=== PATIENT | female | born 1985 | race Hispanic/Latino ===

== ENCOUNTER 2018-05-01 07:12 | Emergency (ER) | payer MEDICAID ==
[2018-05-01 07:17] VITALS: TEMP 98.2; O2SAT 99
[2018-05-01] MEDS ORDERED: Sodium Chloride 0.9% 1,000 ML IV ONE (07:52)
--- NOTE | 2018-05-01 07:54 | C.PDOC ---
History Of Present Illness 33 y/o female with history of GERD presents to ED for evaluation of localized epigastric and RUQ abdominal pain since last night associated with nausea. Patient denies fever, chills, sore throat, neck pian, CP,SOB, dyspnea, cough, vomiting, diarrhea, melena, back pain, dysuria, hematuria,denies recent travel or known sick contact, or any other complaints at this time. Ambulate to Ed for evaluation, not in any apparent distress. Time Seen by Provider: 05/01/18 07:19 Chief Complaint (Nursing): Abdominal Pain History Per: Patient History/Exam Limitations: no limitations Onset/Duration Of Symptoms: Days Current Symptoms Are (Timing): Still Present Location Of Pain/Discomfort: RUQ, Epigastric Radiation Of Pain To:: None Quality Of Discomfort: "Pain" Past Medical History Reviewed: Historical Data, Nursing Documentation, Vital Signs Vital Signs: Last Vital Signs Temp 98.2 F 05/01/18 09:53 Pulse 87 05/01/18 09:53 Resp 14 05/01/18 09:53 BP 118/82 05/01/18 09:53 Pulse Ox 99 05/01/18 10:02 - Medical History PMH: Gastritis Surgical History: Appendectomy Family History: States: No Known Family Hx - Social History Hx Alcohol Use: Yes Hx Substance Use: Yes - Immunization History Hx Tetanus Toxoid Vaccination: No Hx Influenza Vaccination: No Hx Pneumococcal Vaccination: No Review Of Systems Constitutional: Negative for: Fever, Chills Gastrointestinal: Positive for: Nausea, Abdominal Pain. Negative for: Vomiting , Diarrhea Genitourinary: Negative for: Dysuria Skin: Negative for: Rash Physical Exam - Physical Exam Appears: Well, Non-toxic, No Acute Distress Skin: Warm, Dry Head: Normacephalic Eye(s): bilateral: PERRL Nose: No Flaring, No Discharge Oral Mucosa: Moist Throat: No Erythema, No Drooling Neck: Trachea Midline, Supple Cardiovascular: Rhythm Regular, No Murmur, No JVD Respiratory: No Decreased Breath Sounds, No Rales, No Rhonchi, No Stridor, No Wheezing Gastrointestinal/Abdominal: Soft, Tenderness (mild Epigastric and RUQ), No Distention, No Guarding, No Rebound Back: No CVA Tenderness Extremity: No Pedal Edema, No Swelling Neurological/Psych: Oriented x3, Normal Speech, Normal Cognition ED Course And Treatment - Laboratory Results Result Diagrams: 05/01/18 07:48 05/01/18 07:48 Lab Interpretation: Normal Urine POC: Negative O2 Sat by Pulse Oximetry: 99 (RA) Pulse Ox Interpretation: Normal - CT Scan/US Gallbladder and hepatic Other Rad Studies (CT/US): Interpreted By Me, Read By Radiologist CT/US Interpretation: normal study. Progress Note: Pt reports, moderate improvement in symptoms after ED tx. On re- evaluation, pt is afebrile, hemodynamicaly stable. Non-toxic, tolerate po well in ED. Afebrile, hemodynamicaly stable. ENT: no acute findings. Neck: Supple , (-) JVD. Lungs: CTA B/L, BS equal B/L. ABd: benign, (-) guarding, (-) rebound. Back: (-) CVA Tenderness. Blood work review and appears noraml. Gallbladder US review (-) acute abnormalities. Pt has clinical findings c/w epigastric pain. Pt advised. ref. to f/u with PMD, GI in 2-3 days for re- eval. Return to ED if any worsening or new changes. Disposition Counseled Patient/Family Regarding: Studies Performed, Diagnosis, Need For Followup, Rx Given - Disposition Referrals: Bri Shields FNP [Advanced Practice Nurse] - Disposition: HOME/ ROUTINE Disposition Time: 09:53 Condition: STABLE Additional Instructions: Encourage fluids Diet restriction for 1-2 weeks MYLANTA, MAALOX, SIMETHICONE OTC MEDICTAION FOR EPIGASTRIC PAIN Follow up with PMD, GI in 2-3 days for re-evaluation. Return to ED if any worsening or new changes. Prescriptions: traMADol [Ultram] 50 mg PO TID #7 tab Instructions: Acid Reflux (Gastroesophageal Reflux Disease), Adult (DC) Forms: [employer] (Macedonian) - Clinical Impression Clinical Impression: Epigastric pain - PA / MAINTENANCE SUPERVISOR MECHANICAL / Resident Statement MD/DO has reviewed & agrees with the documentation as recorded. - Scribe Statement The provider has reviewed the documentation as recorded by the Scribe Richard Amaya All medical record entries made by the Scribe were at my direction and personally dictated by me. I have reviewed the chart and agree that the record accurately reflects my personal performance of the history, physical exam, medical decision making, and the department course for this patient. I have also personally directed, reviewed, and agree with the discharge instructions and disposition.
[2018-05-01 07:55] LABS: BASO # 0.1 K/uL (0.0-0.2); BASO % 0.9 % (0.0-2.0); EOS # 0.1 K/uL (0.0-0.7); EOS % 1.5 % (0.0-4.0); HEMOGLOBIN 14.9 g/dL (11.0-16.0); LYMPH # 1.7 K/uL (1.0-4.3); LYMPH % 19.9 % (20.0-40.0); MEAN CORPUSCULAR HEMOGLOBIN 28.3 pg (27.0-31.0); MEAN CORPUSCULAR HGB CONC 33.6 g/dL (33.0-37.0); MEAN PLATELET VOLUME 8.5 fL (7.2-11.7); MONO # 0.5 K/uL (0.0-0.8); MONO % 5.6 % (0.0-10.0); NEUT # 6.1 K/uL (1.8-7.0); NEUT % 72.1 % (50.0-75.0); NRBC % 0.1 % (0.0-2.0); RBC 5.29 Mil/uL (3.80-5.20); RED CELL DISTRIBUTION WIDTH 15.1 % (11.5-14.5); WHITE BLOOD COUNT 8.5 K/uL (4.8-10.8)
[2018-05-01] MEDS ORDERED: Sodium Chloride 0.9% 1,000 ML ONE (08:01)
[2018-05-01 08:05] LABS: HCG,QUALITATIVE URINE NEGATIVE (NEGATIVE)
[2018-05-01 08:07] LABS: SQUAMOUS EPITHIAL 1 /hpf (0-5); URINE BACTERIA RARE (<OCC); URINE BILIRUBIN NEGATIVE (NEGATIVE); URINE BLOOD NEGATIVE (NEGATIVE); URINE CLARITY Clear (Clear); URINE COLOR Straw (YELLOW); URINE GLUCOSE (UA) NORMAL (Normal); URINE LEUKOCYTE ESTERASE NEG Leu/uL (Negative); URINE PROTEIN NEGATIVE (NEGATIVE); URINE UROBILINOGEN NORMAL mg/dL (0.2-1.0)
[2018-05-01 08:11] LABS: ALB/GLOB RATIO 1.4 (1.0-2.1); ALBUMIN 4.5 g/dL (3.5-5.0); ALT/SGPT 16 U/L (9-52); AMYLASE 115 U/L (30-110); AST/SGOT 27 U/L (14-36); BLOOD UREA NITROGEN 14 mg/dL (7-17); CALCIUM 9.6 mg/dl (8.6-10.4); GFR AFRICAN-AMERICAN > 60; GFR NON-AFRICAN AMERICAN > 60; LIPASE 117 U/L (23-300)
[2018-05-01 09:54] VITALS: BP 118/82; PULSE 87; RESP 14
--- NOTE | 2018-05-01 10:07 | US ---
Date of service: 05/01/2018 HISTORY: Right upper quadrant pain COMPARISON: None. TECHNIQUE: Grayscale imaging was performed. FINDINGS: LIVER: Measures 15.4 cm in length. Normal echogenicity of the liver parenchyma. No mass. No intrahepatic bile duct dilatation. GALLBLADDER: There are no gallstones, wall thickening or pericholecystic fluid. The sonographic Miller's sign is negative. COMMON BILE DUCT: Measures 3.5 mm. No stones. No dilatation. PANCREAS: Unremarkable as visualized. No mass. No ductal dilatation. RIGHT KIDNEY: Measures 10.6 cm in length. Normal echogenicity. No calculus, mass, or hydronephrosis. AORTA: No aneurysmal dilatation. IVC: Unremarkable. OTHER FINDINGS: None . IMPRESSION: Normal examination.
== END 2018-05-01 10:22 | disposition home or self-care (01) ==
LOC: C.ER 07:12
DX: R10.13 Epigastric pain (principal)
CPT/HCPCS: 76705; 80053; 81001; 82150; 83690; 84703; 85025; 96361; 96374; 96375; 99285; C9113; J1885; J2405; J7030